=== PATIENT | female | born 1985 | race Caucasian/White ===

== ENCOUNTER 2017-10-17 15:46 | Emergency (ER) | payer SELFPAY ==
--- NOTE | 2017-10-17 16:20 | ER Document Report ---
ED Psych Disorder / Suicide - General Chief Complaint: Suicidal Ideation Stated Complaint: PSYCH EVAL Time Seen by Provider: 10/17/17 16:06 Mode of Arrival: Ambulatory Information source: Patient TRAVEL OUTSIDE OF THE [place] IN LAST 30 DAYS: No - HPI Patient complains to provider of: Suicidal ideation Onset: Just prior to arrival Onset was: Sudden Quality of pain: No pain Severity: None Pain Level: 0 Suicide Risk Factors: Prior suicide attempt Situational problems related to: Other Associated symptoms: Flat affect Similar symptoms previously: Yes Recently seen / treated by doctor: No - Related Data Allergies/Adverse Reactions: No Known Allergies Allergy (Unverified 02/23/16 22:15) Past Medical History - Social History Smoking Status: Current Every Day Smoker Chew tobacco use (# tins/day): No Frequency of alcohol use: None Drug Abuse: None Family History: None Patient has suicidal ideation: No Patient has homicidal ideation: No Renal/ Medical History: Denies: Hx Peritoneal Dialysis GI Medical History: Reports: Hx Ulcerative Colitis Psychiatric Medical History: Reports: Hx Bipolar Disorder, Hx Depression Review of Systems - Review of Systems Constitutional: denies: Chills, Fever EENT: No symptoms reported Cardiovascular: No symptoms reported Respiratory: No symptoms reported Gastrointestinal: No symptoms reported Genitourinary: No symptoms reported Female Genitourinary: No symptoms reported Musculoskeletal: No symptoms reported Skin: No symptoms reported Hematologic/Lymphatic: No symptoms reported Neurological/Psychological: No symptoms reported -: Yes All other systems reviewed and negative Physical Exam - Vital signs Vitals: Temp Pulse BP Pulse Ox 99.4 F 107 H 123/73 100 10/17/17 15:57 10/17/17 15:57 10/17/17 15:57 10/17/17 15:57 - General General appearance: Appears well, Alert In distress: None - HEENT Head: Normocephalic, Atraumatic Eyes: Normal Pupils: PERRL - Respiratory Respiratory status: No respiratory distress Chest status: Nontender Breath sounds: Normal Chest palpation: Normal - Cardiovascular Rhythm: Regular Heart sounds: Normal auscultation Murmur: No - Abdominal Inspection: Normal Distension: No distension Bowel sounds: Normal Tenderness: Nontender Organomegaly: No organomegaly - Back Back: Normal, Nontender - Extremities General upper extremity: Normal inspection, Nontender, Normal color, Normal ROM , Normal temperature General lower extremity: Normal inspection, Nontender, Normal color, Normal ROM , Normal temperature, Normal weight bearing. No: Kain's sign - Neurological Neuro grossly intact: Yes Cognition: Normal Orientation: AAOx4 [place] Coma Scale Eye Opening: Spontaneous [place] Coma Scale Verbal: Oriented [place] Coma Scale Motor: Obeys Commands [place] Coma Scale Total: 15 Speech: Normal Motor strength normal: LUE, RUE, LLE, RLE Sensory: Normal - Psychological Associated symptoms: Flat affect, Other - Suicide Ideation. - Skin Skin Temperature: Warm Skin Moisture: Dry Skin Color: Normal Course - Vital Signs Vital signs: Temp Pulse Resp BP Pulse Ox 98.1 F 69 18 111/65 99 10/17/17 20:37 10/17/17 20:37 10/17/17 20:37 10/17/17 20:37 10/17/17 20:37 - Laboratory Result Diagrams: 10/17/17 15:50 10/17/17 15:50 Laboratory results interpreted by me: 10/17/17 10/17/17 10/17/17 15:30 15:50 15:50 WBC 17.4 H Absolute Neutrophils 10.6 H Absolute Lymphocytes 5.7 H Sodium 145.9 H Urine Nitrite Urine Urobilinogen Salicylates < 1.0 L Acetaminophen < 10 L 10/17/17 20:20 WBC Absolute Neutrophils Absolute Lymphocytes Sodium Urine Nitrite POSITIVE H Urine Urobilinogen 2.0 H Salicylates Acetaminophen - Transfer of Care Notes: 10/17/17 23:31 Patient is medically cleared for psychiatric evaluation. Discharge - Discharge Clinical Impression: Suicide ideation UTI (urinary tract infection) Qualifiers: Urinary tract infection type: acute cystitis Hematuria presence: without hematuria Qualified Code(s): N30.00 - Acute cystitis without hematuria Condition: Stable Disposition: PSYCH HOSP/UNIT
[2017-10-17 16:34] LABS: ABSOLUTE BASOPHILS # (AUTO) 0.1 10^3/uL (0.0-0.2); ABSOLUTE EOSINOPHILS # (AUTO) 0.3 10^3/uL (0.0-0.6); ABSOLUTE LYMPHOCYTES (AUTO) 5.7 10^3/uL (0.5-4.7); ABSOLUTE MONOCYTES (AUTO) 0.7 10^3/uL (0.1-1.4); ABSOLUTE NEUT (AUTO) 10.6 10^3/uL (1.7-8.2); BASOPHILS % (AUTO) 0.8 % (0-2); EOSINOPHILS % (AUTO) 1.9 % (0-6); HEMATOCRIT 44.4 % (36.0-47.0); LYMPHOCYTES % (AUTO) 32.8 % (13-45); MEAN CORPUSCULAR HEMOGLOBIN 29.6 pg (27.0-33.4); MEAN CORPUSCULAR HGB CONC 33.8 g/dL (32.0-36.0); MEAN CORPUSCULAR VOLUME 88 fl (80-97); MONOCYTES % (AUTO) 3.8 % (3-13); PLATELET COUNT 438 10^3/uL (150-450); RED BLOOD COUNT 5.06 10^6/uL (3.72-5.28); RED CELL DISTRIBUTION WIDTH 13.2 % (11.5-14.0); SEGMENTED NEUTROPHILS % (AUTO) 60.7 % (42-78); TOTAL CELLS COUNTED % (AUTO) 100 %; WHITE BLOOD COUNT 17.4 10^3/uL (4.0-10.5)
[2017-10-17 16:44] LABS: ALANINE AMINOTRANSFERASE 22 U/L (9-52); ALBUMIN 4.7 g/dL (3.5-5.0); ALKALINE PHOSPHATASE 80 U/L (38-126); ANION GAP 15 (5-19); ASPARTATE AMINO TRANSFERASE 23 U/L (14-36); BILIRUBIN,DIRECT 0.3 mg/dL (0.0-0.4); BILIRUBIN,TOTAL 0.3 mg/dL (0.2-1.3); BLOOD UREA NITROGEN 13 mg/dL (7-20); CARBON DIOXIDE 25 mmol/L (22-30); CHLORIDE 106 mmol/L (98-107); GLUCOSE 95 mg/dL (75-110); POTASSIUM 4.1 mmol/L (3.6-5.0); SODIUM 145.9 mmol/L (137-145)
[2017-10-17 16:47] LABS: ACETAMINOPHEN < 10 ug/mL (10-30); SALICYLATE < 1.0 mg/dL (2.0-20.0)
[2017-10-17 20:38] LABS: AMORPHOUS SEDIMENT,URINE TRACE /HPF; APPEARANCE,URINE TURBID; BILIRUBIN,URINE NEGATIVE (NEGATIVE); GLUCOSE, URINE NEGATIVE (NEGATIVE); KETONES,URINE NEGATIVE (NEGATIVE); LEUKOCYTE ESTERASE,URINE NEGATIVE (NEGATIVE); NITRITE,URINE POSITIVE (NEGATIVE); PROTEIN,URINE NEGATIVE (NEGATIVE); URINE SPECIFIC GRAVITY 1.019
[2017-10-17 20:39] LABS: COLOR,URINE YELLOW
[2017-10-17 20:51] LABS: URINE AMPHETAMINES SCREEN NEGATIVE; URINE BARBITURATES SCREEN NEGATIVE; URINE BENZODIAZEPINES SCREEN NEGATIVE; URINE COCAINE SCREEN NEGATIVE; URINE MARIJUANA (THC) SCREEN NEGATIVE; URINE METHADONE SCREEN NEGATIVE; URINE PHENCYCLIDINE SCREEN NEGATIVE
--- NOTE | 2017-10-17 21:53 | EKG REPORT ---
SEVERITY:- BORDERLINE ECG - SINUS RHYTHM PROBABLE LEFT ATRIAL ABNORMALITY : Confirmed by: Niki Thompson 17-Oct-2017 21:52:47
[2017-10-17 22:56] VITALS: BP 111/65
[2017-10-17] MEDS ORDERED: CEPHALEXIN 500 MG CAPSULE PO ONE (23:32)
--- NOTE | 2017-10-18 09:47 | ER Document Report ---
Doctor's Note Notes: 10/18/17 09:45 Rounds: Chart reviewed and patient interviewed. Patient being evaluated for suicidal thoughts. Denies feeling suicidal at this time. Vital signs are all normal. Lab studies showed a white count of 17,400, but patient does not appear to be significantly ill. Her urinalysis is suggestive of a UTI, though not symptoms of pyelonephritis. Patient is being discharged on a prescription for Macrobid twice a day for 3 days. Patient is medically stable for transfer or discharge. Abimael Lee MD
== END 2017-10-18 10:07 | disposition home or self-care (01) ==
LOC: ER 15:46
DX: R45.851 Suicidal ideations (principal); N30.00 Acute cystitis without hematuria; F17.200 Nicotine dependence, unspecified, uncomplicated
CPT/HCPCS: 36415; 80053; 80307; 81001; 81025; 84443; 85025; 93005; 93010; 99285

== ENCOUNTER 2017-11-12 09:51 | Emergency (ER) | payer BC ==
[2017-11-12] MEDS ORDERED: ACETAMINOPHEN 325 MG TABLET PO ONE (10:48)
[2017-11-12] MEDS ORDERED: IBUPROFEN 400 MG TABLET PO ONE (10:49)
--- NOTE | 2017-11-12 10:50 | ER Document Report ---
ED Medical Screen (RME) - General Chief Complaint: Flank Pain Stated Complaint: FLANK PAIN Time Seen by Provider: 11/12/17 10:43 Notes: 32-year-old female to the emergency department complaining of a one-week history of left-sided flank pain. Has had a history of kidney stones as well as UTIs. Intermittent chills and fever at home but none at this time. Does not think she is . I have greeted and performed a rapid initial assessment of this patient. A comprehensive ED assessment and evaluation of the patient, analysis of test results and completion of the medical decision making process will be conducted by additional ED providers. TRAVEL OUTSIDE OF THE [place] IN LAST 30 DAYS: No - Related Data Allergies/Adverse Reactions: No Known Allergies Allergy (Verified 11/12/17 09:51) Past Medical History Renal/ Medical History: Denies: Hx Peritoneal Dialysis GI Medical History: Reports: Hx Ulcerative Colitis Psychiatric Medical History: Reports: Hx Bipolar Disorder, Hx Depression Review of Systems - Review of Systems Notes: Review of systems remarkable for the following: Dysuria, left flank pain fever chills Physical Exam - Vital signs Vitals: Temp Pulse Resp BP Pulse Ox 99.4 F 115 H 18 112/69 96 11/12/17 09:54 11/12/17 09:54 11/12/17 09:54 11/12/17 09:54 11/12/17 09:54 - Back Back: CVA tenderness Course - Vital Signs Vital signs: Temp Pulse Resp BP Pulse Ox 99.4 F 115 H 18 112/69 96 11/12/17 09:54 11/12/17 09:54 11/12/17 09:54 11/12/17 09:54 11/12/17 09:54 - Laboratory Laboratory results interpreted by me: 11/12/17 11:10 Urine Protein 100 H Urine Blood SMALL H Urine Bilirubin SMALL H Urine Urobilinogen 4.0 H Ur Leukocyte Esterase MODERATE H
[2017-11-12] MEDS ORDERED: NORMAL SALINE 1000 ML 1,000 ML IV ONE ×2 (11:18→12:06)
--- NOTE | 2017-11-12 11:19 | ER Document Report ---
ED GI/ - General Chief Complaint: Flank Pain Stated Complaint: FLANK PAIN Time Seen by Provider: 11/12/17 10:43 Mode of Arrival: Ambulatory Information source: Patient Notes: Patient presents complaining of left flank pain for the past 6 days. Patient does report hot and cold chills at home. Patient denies any nausea vomiting or diarrhea. Patient does complain of some urinary frequency. She states that she was treated for UTI earlier this month but does not feel that the symptoms completely resolved. TRAVEL OUTSIDE OF THE [place] IN LAST 30 DAYS: No - HPI Patient complains to provider of: Flank pain. No: Abdominal pain Onset: Other - 6 days Timing/Duration: Persistent Quality of pain: Achy Pain Level: 3 Location: Left flank Vaginal bleeding (Compared to normal period): None Associated symptoms: Chills, Urinary frequency. denies: Dysuria, Fever, Loss of appetite, Nausea, Urinary hesitancy, Vaginal discharge Exacerbated by: Denies Relieved by: Denies Similar symptoms previously: Yes Recently seen / treated by doctor: No - Related Data Allergies/Adverse Reactions: No Known Allergies Allergy (Verified 11/12/17 09:51) Past Medical History - General Information source: Patient - Social History Smoking Status: Unknown if Ever Smoked Frequency of alcohol use: None Drug Abuse: None Occupation: None Family History: None Patient has suicidal ideation: No Patient has homicidal ideation: No Renal/ Medical History: Denies: Hx Peritoneal Dialysis GI Medical History: Reports: Hx Ulcerative Colitis Psychiatric Medical History: Reports: Hx Anxiety, Hx Bipolar Disorder, Hx Depression Surgical Hx: Negative Review of Systems - Review of Systems Constitutional: Chills. denies: Fever EENT: No symptoms reported Cardiovascular: No symptoms reported. denies: Chest pain Respiratory: No symptoms reported. denies: Cough, Short of breath Gastrointestinal: Nausea. denies: Abdominal pain, Vomiting Genitourinary: Frequency, Flank pain. denies: Dysuria Female Genitourinary: No symptoms reported. denies: Vaginal discharge, Vaginal bleeding Musculoskeletal: Back pain Skin: No symptoms reported Hematologic/Lymphatic: No symptoms reported Neurological/Psychological: No symptoms reported Physical Exam - Vital signs Vitals: Temp Pulse Resp BP Pulse Ox 99.4 F 115 H 18 112/69 96 11/12/17 09:54 11/12/17 09:54 11/12/17 09:54 11/12/17 09:54 11/12/17 09:54 - General General appearance: Appears well, Alert In distress: None - HEENT Head: Normocephalic, Atraumatic Eyes: Normal Conjunctiva: Normal Nasal: Normal Mouth/Lips: Normal Mucous membranes: Dry Pharynx: Normal Neck: Normal, Supple. No: Lymphadenopathy - Respiratory Respiratory status: No respiratory distress Chest status: Nontender Breath sounds: Normal. No: Rales, Rhonchi, Stridor, Wheezing Chest palpation: Normal - Cardiovascular Rhythm: Tachycardia Heart sounds: S1 appreciated, S2 appreciated Murmur: No - Abdominal Inspection: Normal Distension: No distension Bowel sounds: Normal Tenderness: Nontender Organomegaly: No organomegaly - Back Back: CVA tenderness - left - Extremities General upper extremity: Normal inspection, Nontender, Normal ROM General lower extremity: Normal inspection, Nontender, Normal ROM - Neurological Neuro grossly intact: Yes Cognition: Normal [place] Coma Scale Eye Opening: Spontaneous [place] Coma Scale Verbal: Oriented [place] Coma Scale Motor: Obeys Commands [place] Coma Scale Total: 15 - Psychological Associated symptoms: Normal affect, Normal mood - Skin Skin Temperature: Warm Skin Moisture: Dry Skin Color: Normal Course - Re-evaluation Re-evalutation: 11/12/17 16:02 Patient without any findings worrisome for obstructive uropathy. Patient afebrile. Patient does report having a recent UTI and states that she is not certain that she had complete resolution of her symptoms. Patient is nontoxic in appearance with stable vital signs at this time. Urine culture has been ordered. Good return precautions given. - Vital Signs Vital signs: Temp Pulse Resp BP Pulse Ox 97.7 F 96 16 100/61 98 11/12/17 16:12 11/12/17 16:12 11/12/17 16:12 11/12/17 16:12 11/12/17 16:12 - Laboratory Laboratory results interpreted by me: 11/12/17 11:10 Urine Protein 100 H Urine Blood SMALL H Urine Bilirubin SMALL H Urine Urobilinogen 4.0 H Ur Leukocyte Esterase MODERATE H Labs- Entire Visit 11/12/17 11:10 Urine Color LEIDY Urine Appearance CLOUDY Urine pH 5.0 Ur Specific Council 1.030 Urine Protein 100 H Urine Glucose (UA) NEGATIVE Urine Ketones NEGATIVE Urine Blood SMALL H Urine Nitrite NEGATIVE Urine Bilirubin SMALL H Urine Urobilinogen 4.0 H Ur Leukocyte Esterase MODERATE H Urine WBC (Auto) >182 Urine RBC (Auto) 17 U Hyaline Cast (Auto) 13 Urine Bacteria (Auto) 3+ Urine WBC Clumps FEW Squamous Epi Cells Auto 2 Urine Mucus (Auto) MOD Urine Ascorbic Acid NEGATIVE Urine HCG, Qual NEGATIVE - Diagnostic Test Radiology reviewed: Reports reviewed Discharge - Discharge Clinical Impression: Pyelonephritis Condition: Stable Disposition: HOME, SELF-CARE Instructions: Pyelonephritis ([facility]), Rocephin ([facility]) Additional Instructions: Return immediately for any new or worsening symptoms Followup with your primary care provider, call tomorrow to make a followup appointment Urine culture is pending, we will call if you need any different treatment Prescriptions: Cephalexin Monohydrate [Keflex 500 mg Capsule] 500 mg PO Q6H 7 Days capsule Referrals: [facility] [Provider Group] - Follow up as needed [facility] [Provider Group] - Follow up as needed
[2017-11-12 11:42] LABS: APPEARANCE,URINE CLOUDY; BILIRUBIN,URINE SMALL (NEGATIVE); COLOR,URINE AMBER; GLUCOSE, URINE NEGATIVE (NEGATIVE); KETONES,URINE NEGATIVE (NEGATIVE); LEUKOCYTE ESTERASE,URINE MODERATE (NEGATIVE); NITRITE,URINE NEGATIVE (NEGATIVE); PROTEIN,URINE 100 mg/dL (NEGATIVE)
--- NOTE | 2017-11-12 12:11 | RADIOLOGY REPORT (SQ) ---
EXAM DESCRIPTION: KUB/ABDOMEN (SINGLE VIEW) COMPLETED DATE/TIME: 11/12/2017 11:50 am REASON FOR STUDY: left flankl pain, hx of stone COMPARISON: None. NUMBER OF VIEWS: One view. TECHNIQUE: Supine radiographic image of the abdomen acquired. LIMITATIONS: None. FINDINGS: BOWEL GAS PATTERN: Normal bowel gas pattern. No dilated loops. CALCIFICATIONS: No suspicious calcifications. SOFT TISSUES: No gross mass or suggestion of organomegaly. HARDWARE: None. BONES: No bone lesions or fracture. OTHER: No other significant finding. IMPRESSION: NO RADIOGRAPHIC EVIDENCE FOR ACUTE ABDOMINAL DISEASE. Reading location - IP/workstation name: [email or web address]
[2017-11-12] MEDS ORDERED: CEFTRIAXONE INJ 1000 MG VIAL IV ONE (12:24)
--- NOTE | 2017-11-12 15:30 | RADIOLOGY REPORT (SQ) ---
EXAM DESCRIPTION: U/S RETROPERITON LTD COMPLETED DATE/TIME: 11/12/2017 3:13 pm REASON FOR STUDY: L flank pain COMPARISON: None. TECHNIQUE: Dynamic and static grayscale images acquired of the kidneys and bladder and recorded on P ACS. Additional selected color Doppler and spectral images recorded. LIMITATIONS: None. FINDINGS: RIGHT KIDNEY: Normal size, 11.5 cm. Normal echogenicity. No solid or suspicious nickolas s. Minimal hydronephrosis. No calcifications. LEFT KIDNEY: Normal size, 11.4 cm. Normal echogenicity. No solid or suspicious masses. Minimal hydronephrosis. No calcifications. BLADDER: No masses. Bilateral ureteral jets are seen. OTHER FINDINGS: No other significant finding. IMPRESSION: Minimal hydronephrosis bilaterally. Otherwise normal. TECHNICAL DOCUMENTATION: JOB ID: [id number] [email or web address]- All Rights Reserved Reading location - IP/workstation name: [email or web address]
[2017-11-12 16:13] VITALS: BP 100/61
== END 2017-11-12 16:17 | disposition home or self-care (01) ==
LOC: ER 09:51
DX: N12 Tubulo-interstitial nephritis, not specified as acute or chronic (principal); R10.9 Unspecified abdominal pain; R35.0 Frequency of micturition; R11.0 Nausea; R68.83 Chills (without fever)
CPT/HCPCS: 99285; 96361; 96374; 87086; 81025; 87088; 81001; 87186; 74018; 76775; J3490; J0696; J7030